=== PATIENT | male | born 1995 ===

== ENCOUNTER 2016-11-04 13:22 | Emergency (ER) | payer SELFPAY ==
[~2016-11-04] VITALS: Ht 180.3 cm; Wt 80.0 kg
[2016-11-04 13:26] VITALS: Ht 180.3 cm; Wt 80.0 kg
--- NOTE | 2016-11-04 14:26 | ERA ---
ER Documentation Chief Complaint Date/Time DATE: 11/04/16 TIME: 14:25 Chief Complaint RIGHT HAND PAIN HPI The patient is a 21-year-old male, presenting to the ER because of chronic right hand after surgery many years ago. He does not want to provide much history only once to sleep. He denies fever, chills, neck pain, chest pain, dyspnea, abdominal pain, vomiting, dysuria, diarrhea. He does not smoke nor drink nor does illicit drug Past medical history: None Past medical history: Right hand ROS All systems reviewed and are negative except as per history of present illness. Allergies Allergies: Coded Allergies: No Known Allergy (Unverified , 11/04/16) Physical Exam Vitals Vital Signs Date Time Temp Pulse Resp B/P Pulse Ox O2 Delivery O2 Flow Rate FiO2 11/04/16 13:26 98.1 69 18 135/66 98 Physical Exam Const: No acute distress. Head: Atraumatic. Eyes: Normal Conjunctiva. ENT: Normal External Ears, Nose and Mouth. Neck: Full range of motion. No meningismus. Resp: Clear to auscultation bilaterally. Cardio: Regular rate and rhythm. Abd: Soft, non distended, normal bowel sounds, non tender. Skin: No petechiae or rashes. Back: No midline or flank tenderness. Ext: No cyanosis, or edema. Vague right hand tenderness, no ecchymosis, laceration, not warm to touch Neur: Awake and alert. No focal deficit Psych: Normal Mood and Affect. Results 24 hrs Current Medications Medications (Trade) Dose Ordered Sig/Sandy Route PRN Reason Start Time Stop Time Status Last Admin Dose Admin Ibuprofen (Motrin) 600 mg ONCE ONCE PO 11/04/16 15:00 11/04/16 15:01 DC 11/04/16 14:43 Procedures/MDM MEDICAL MAKING DECISION: The patient is a 20-year-old male, presenting with acute on chronic right hand pain of unclear etiology. I have order for x-ray and treated him with Motrin, however he eloped from the emergency department The differential diagnoses considered include but are not limited to fracture, contusion, sprain, DVT, cellulitis Departure Diagnosis: Primary Impression: Right hand pain Condition: Stable Comments He eloped from the emergency department The patient's blood pressure was elevated (>120/80) but appears stable without evidence of hypertension emergency or urgency. The patient was counseled about the risks of hypertension and urged to pursue outpatient monitoring and therapy within a week with their primary care physician. SHAHLA ZURITA MD Nov 04, 2016 14:25
[2016-11-04] MEDS ORDERED: IBUPROFEN 600 MG TAB PO ONE (15:00)
== END 2016-11-04 16:33 | disposition home or self-care (01) ==
LOC: FTE 13:22
DX: M79.641 Pain in right hand (principal)
CPT/HCPCS: 99282